=== PATIENT | male | born 1980 | race Caucasian/White ===

== ENCOUNTER → 2016-07-05 | Outpatient (CLI) | payer OTHER | LOC: CIMAGING 08:23 | PROVIDERS: ATTEND Nurse Practitioner | DX: N20.0 Calculus of kidney (principal) | CPT/HCPCS: 74176-PO ==

== ENCOUNTER 2017-08-23 09:48 | Inpatient (IN) | payer OTHER ==
[2017-08-23] MEDS ORDERED: NS 1,000 ML IV ONE ×2 (09:54→10:34)
--- NOTE | 2017-08-23 10:13 | EDPHY ---
H & P Time Seen by Provider: 08/23/17 09:55 HPI/ROS: HPI Muscle pain. 37-year-old male by private vehicle. This patient reports that he was working out at a cross fit gym on Sunday. He reports that he usually does get sore a day or so after his workout. However he got sore Sunday night and the soreness has continued through today. He describes having soreness in his biceps and his chest and thighs. He is concerned that he may be in rhabdomyolysis. He denies any trauma. No fever. No other complaints. ROS: Constitutional: No fever, no chills. As above. Respiratory: No cough. No shortness of breath. Cardiac: No chest pain, no palpitations. Gastrointestinal: No abdominal pain, no vomiting, no diarrhea. Genitourinary: No hematuria. No dysuria or increased frequency with urination. No dark urine. Musculoskeletal: No back pain. No neck pain. As above. Skin: No rashes. Neurological: No headache. No focal weakness or altered sensation. Past medical history: Exercise-induced asthma and ADD. He takes Wellbutrin and Vyvanse for this. He also takes testosterone. Social history: Nonsmoker. Denies alcohol. Here by himself. Physical Exam: General Appearance: Alert, no distress. He appears comfortable. Muscular middle-aged male. This patient is responding to questions appropriately and in full sentences. This patient appears well-hydrated and well-nourished. Eyes: Pupils equal and round no pallor or injection. No lid edema, erythema or injection. Respiratory: There are no retractions, lungs are clear to auscultation with good air movement bilaterally. Cardiovascular: Regular rate and rhythm. No murmur. Gastrointestinal: Abdomen is soft and nontender, no masses, bowel sounds normal. No focal tenderness at McBurney's point. No Pepper sign. Neurological: Motor sensory function is grossly intact. Cranial nerves are normal. Gait is normal. Skin: Warm and dry, no rashes. Musculoskeletal: Neck is supple and nontender. Extremities are symmetrical. All joints range without pain or impingement. Psychiatric: No agitation. No depression. Database: EKG: Imaging: Procedures: Emergency department course: Vital signs reviewed. IV was placed. He was started on IV normal saline with 1 -2 L to be given over the next hour. Renal function and CK will be checked. 11:50 a.m., patient CK is 24,000. He is currently on his 2nd L of IV fluid. He appears comfortable. Hospitalist paged. 12:05 p.m., spoke with hospitalist. Patient accepted for admission to the hospitalist service by Dr. Newton. He will go by private vehicle. I have filled out the appropriate transfer paperwork. He was transferred in stable condition. He has had 2 L of IV normal saline in the emergency department. Differential Diagnosis: The differential diagnosis on this patient includes but is not limited to muscle fatigue, post exercise muscle soreness. Rhabdomyolysis, viral syndrome unlikely. This represents a partial list of diagnoses considered. These considerations are based on history, physical exam, past history, reassessment and diagnostic testing. Smoking Status: Never smoked Constitutional: Initial Vital Signs Temperature (C) 36.8 C 08/23/17 10:00 Heart Rate 80 08/23/17 10:00 Respiratory Rate 16 08/23/17 10:00 Blood Pressure 149/94 H 08/23/17 10:00 O2 Sat (%) 98 08/23/17 10:00 O2 Delivery Mode Room Air Allergies/Adverse Reactions: No Known Allergies Allergy (Verified 08/23/17 10:11) Home Medications: Medication Instructions Recorded Amino Acids 11/20/14 Creatine Monohydrate 11/20/14 Fish Oil 11/20/14 Multiple Vitamin 11/20/14 Albuterol Hfa Anes Only 08/23/17 Bupropion HCl 08/23/17 Testosterone 08/23/17 Vyvanse 08/23/17 Medical Decision Making - Data Points Laboratory Results: Laboratory Results 08/23/17 10:20 08/23/17 08/23/17 10:20 10:05 Sodium 137 mEq/L mEq/L (135-145) Potassium 4.4 mEq/L mEq/L (3.3-5.0) Chloride 102 mEq/L mEq/L (97-110) Carbon Dioxide 26 mEq/l mEq/l (22-31) Anion Gap 9 mEq/L mEq/L (8-16) BUN 15 mg/dL mg/dL (7-23) Creatinine 1.2 mg/dL mg/dL (0.7-1.3) Estimated GFR > 60 Glucose 93 mg/dL mg/dL (70-100) Calcium 9.3 mg/dL mg/dL (8.5-10.4) Creatine Kinase 82906 IU/L H IU/L (0-224) CK-MB (CK-2) Fraction Pending CK-MB (CK-2) % Pending Creatine Kinase Interp Pending Urine Color YELLOW Urine Appearance CLEAR Urine pH 6.5 (5.0-7.5) Ur Specific Diller <= 1.005 (1.002-1.030) Urine Protein NEGATIVE (NEGATIVE) Urine Ketones NEGATIVE (NEGATIVE) Urine Blood 3+ H (NEGATIVE) Urine Nitrate NEGATIVE (NEGATIVE) Urine Bilirubin NEGATIVE (NEGATIVE) Urine Urobilinogen 0.2 EU EU (0.2-1.0) Ur Leukocyte Esterase NEGATIVE (NEGATIVE) Urine RBC 0-1 /hpf /hpf (0-3) Urine WBC 0-1 /hpf /hpf (0-3) Ur Epithelial Cells NONE SEEN /lpf /lpf (NONE-1+) Urine Glucose NEGATIVE (NEGATIVE) Medications Given: Discontinued Medications Sodium Chloride (Ns) 1,000 mls @ 0 mls/hr IV EDNOW ONE; Wide Open PRN Reason: Protocol Stop: 08/23/17 09:55 Last Admin: 08/23/17 10:26 Dose: 1,000 mls Sodium Chloride (Ns) 1,000 mls @ 0 mls/hr IV EDNOW ONE; Wide Open PRN Reason: Protocol Stop: 08/23/17 10:35 Last Admin: 08/23/17 11:30 Dose: 1,000 mls Departure - Departure Disposition: [facility] Inpatient Acute Clinical Impression: Rhabdomyolysis
[2017-08-23 11:41] LABS: CREATINE KINASE 24000 IU/L (0-224)
[2017-08-23] MEDS ORDERED: PROMETHAZINE HCL 25 MG/ML INJ IVP PRN (14:40)
[2017-08-23] MEDS ORDERED: ACETAMINOPHEN 325 MG TAB PO PRN (14:40)
[2017-08-23] MEDS ORDERED: CYCLOBENZAPRINE 10 MG TAB PO PRN (14:58)
--- NOTE | 2017-08-23 15:57 | GHP ---
[f rep st] HISTORY AND PHYSICAL DATE OF ADMISSION: 08/23/2017 CHIEF COMPLAINT: Bilateral arm pain. HISTORY OF PRESENT ILLNESS: The patient is a pleasant 37-year-old gentleman with a past medical hist ory of exercise-induced asthma and attention deficit disorder, currently treated with Wellbutrin and Vyvanse who presented to the [facility] with complaint of persistent bilateral up per arm pain. The patient states he is relatively active and works out frequently, but on the prior Sunday to admission to the hospital, he had a more intense workup than average. He states he usually gets muscle pain about 48 hours after an intense workout, but he states this pain started the day of the work out and persisted throughout the subsequent several days. He noted swelling of his arms as well and there was associated limited mobility in flexion of his elbows. As such, he presented to [facility] and evaluation there was notable for a creatine kinase of 24,000. The patient states that the emily n is reasonable as long as he keeps his elbows in a somewhat flexed position. He has not noted any c old extremities. He does not have any significant symptoms in his lower extremities, other than mild associated soreness. Apparently some of the CrossFit exercise that he was doing involved a lot of p ull-ups. PAST MEDICAL HISTORY: 1. Asthma, exercise induced. 2. Attention deficit disorder. PAST SURGICAL HISTORY: 1. Hernia repair. 2. Tonsillectomy. MEDICATIONS: 1. Wellbutrin XL 150 mg daily. 2. Vyvanse 40 mg daily. 3. Albuterol inhaler as needed. 4. Testosterone 240 mg IM every 7 days. ALLERGIES: No known drug allergies. FAMILY HISTORY: Mother and father are both living. There are several cardiac issues on his mother s shankar, including early coronary artery disease, aortic dissection. His brother has a history of hypert rophic cardiomyopathy and is status post valve replacement, secondary to endocarditis. Father report edly healthy. SOCIAL HISTORY: Patient is a nonsmoker. He does drink alcohol socially. He is currently . He has 1 biological son of his own. REVIEW OF SYSTEMS: CONSTITUTIONAL: No reports of any fevers or chills. ENT: No recent upper respi ratory illnesses. CARDIOVASCULAR: No complaints of any chest pains, palpitations, or syncopal episo lily. RESPIRATORY: No complaints of shortness of breath or productive cough. GI: No nausea, vomiti ng, diarrhea, or constipation. No focal abdominal pain. : No report of any difficulty with urina tion, but he did notice urine appeared slightly darker in the prior 24-48 hours. NEUROLOGIC: No com plaints of any headaches or paralysis, but he does have some weakness of his upper extremities relate d to the rhabdomyolysis. HEMATOLOGIC: No history of any deep vein thrombosis or pulmonary embolism. PSYCHIATRIC: No history of anxiety or depression. ENDOCRINE: No polyuria or heat or cold intolera nce. SKIN: No new skin rashes. MUSCULOSKELETAL: No joint swelling or redness. PHYSICAL EXAMINATION: VITAL SIGNS: Temperature 37.1, blood pressure 166/99, heart rate 80, respirat ions 18, saturating 97% on room air. GENERAL: Patient appears comfortable. He is awake, alert, con versant, in no acute distress, able to provide a good history. HEENT: Extraocular movements appear intact. No scleral icterus is noted. Mucous membranes moist. NECK: Supple. No thyroid enlargemen t noted. CHEST: Clear on auscultation with normal respiratory effort. HEART: Regular rate and rhy thm. No murmurs appreciated. ABDOMEN: Soft, nontender, nondistended. : No Taylor catheter in pl jose guadalupe. EXTREMITIES: Tenderness with palpation of the biceps muscles. The upper arms do appear to be mildly swollen and taut. He has good pulses radially in the upper extremities bilaterally. NEUROLOG IC: Cranial nerves 2-12 appear grossly intact. Strength 5/5 in the lower extremity and 4/5 with elb ow flexion. LABORATORY DATA: Sodium 137, potassium 4.4, chloride 102, bicarb 26, BUN 15, creatinine 1.2, glucose 93. CPK to 24,000. Urinalysis shows 3+ blood. ASSESSMENT/PLAN: 1. Rhabdomyolysis, presumably secondary to increased intensity of exercise that he did approximately 4 days prior to coming into the hospital. Currently, his electrolytes are within normal limits as i s his creatinine. CPK though rather elevated at 24,000. Recommend starting intravenous fluids with normal saline at 150 cc/h. Will repeat electrolytes and CPK value in the morning as well. Monitor f or any signs or symptoms suggestive of compartment syndrome, but currently has good pulses and the pa in, which appears reasonable. 2. Elevated blood pressure. No known history of hypertension, but has had persistently elevated shea dings here in the hospital in the 150s to 160s. Follow closely overnight. 3. Deep venous thrombosis prophylaxis, low risk. Patient is ambulatory. We will hold Lulu and araceli hunt at this time. DISPOSITION: I will admit him under observation status overnight and reassess tomorrow depending on how his electrolytes appear. /[id number]/MODL
[2017-08-23] MEDS: HYDROCODONE/APAP 5/325 TAB PO PRN (20:28)
[2017-08-23] MEDS: NS 1,000 ML IV SCH (20:28)
[2017-08-24] MEDS: NS 1,000 ML IV SCH ×4 (03:06→19:01)
[2017-08-24 05:18] LABS: PLATELET COUNT 149 10^3/uL (150-400)
[2017-08-24 05:48] LABS: CREATINE KINASE > 30000 IU/L (0-224)
[2017-08-24] MEDS: oxyCODONE IR 5 MG TAB PO PRN ×2 (08:07→14:40)
--- NOTE | 2017-08-24 08:20 | HOSPPROG ---
Hospitalist Progress Note Assessment/Plan: Rhabdomyolysis - cross fit injury. CK trending up. Will increase NS to 200/hr and continue to follow CK daily. Check Mag and phos. Consideration was given to compartment syndrome thus surgical eval is requested. Dr. Goel to see pt. Elevated blood pressure - labile BP's. PRN Hyrdalazine. Consider initiation of anti-hypertensive, but for now focus on pain control. Elevated LFT's - AST>ALT. Note recent heavy etoh intake, could be mild etoh induced hepatitis. Rhabdo may be contributory. Will send hepatitis panel and check RUQ u/s. Trend LFT's. Elevated testosterone level - on supplement. S/P phlebotomy 2 days ago at direction of his testosterone prescriber. Discussed stroke risk with elevated blood pressure. Recommend he hold the testosterone supplement. Asthma - stable, no e/o exacerbation ADD - holding vyvanse with elevated BP Full code Dispo - change to inpt for ongoing management of rhabdomyolysis Subjective: Pt doing ok, still pain and decreased ROM of b/l UE's. Had some paresthesias yesterday, but denies paresthesias now. Notes increased swelling of b/l UE's. No fevers. No N/V. Objective: Vital Signs Temp Pulse Resp BP Pulse Ox 36.8 C 64 14 151/97 H 98 08/24/17 07:20 08/24/17 07:20 08/24/17 07:20 08/24/17 07:20 08/24/17 07:20 Laboratory Results 08/24/17 04:49 08/24/17 04:49 08/23/17 08/24/17 08/25/17 05:59 05:59 05:59 Intake Total 4388 Balance 4388 - Physical Exam Constitutional: no apparent distress Eyes: PERRL Ears, Nose, Mouth, Throat: moist mucous membranes Cardiovascular: regular rate and rhythym Respiratory: no respiratory distress Gastrointestinal: normoactive bowel sounds, soft, non-tender abdomen Skin: warm Musculoskeletal: other (b/l UE swelling surrouding biceps/triceps region, mildly tense, 2+ radial pulses b/l, sensation intact) Neurologic: AAOx3 Psychiatric: interacting appropriately ICD10 Worksheet Patient Problems: Problems Problem Status Onset Rhabdomyolysis Acute
[2017-08-24] MEDS ORDERED: buPROPion XL 150 MG TAB PO SCH (09:00)
--- NOTE | 2017-08-24 09:47 | PDMN ---
Medical Necessity Medical necessity: Patient meets inpatient criteria per physician note and [facility] Musculoskeletal Disease GRG (rhabdomyolysis and rising creatine kinase despite IV hydration; elevated LFT; elevated testosterone, likely d/t supplements, B/P to 192/119; anticipated LOS > 2 midnights for increase IV hydration/NS @ 200ml/ hr, monitoring of elevated B/P/poss initiation of antihypertensive meds.)
--- NOTE | 2017-08-24 13:19 | PDCONSULT ---
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 Surgical consultation was requested to rule out compartment syndrome. He works out in a Cross-Fit gym 4-7 x week and uses 240mg Testosterone IM weekly. His last work out was last . Then he and his went to the [employer] for a long weekend with friends. He consumed more than his usual amount of EtOH and felt "lousy" on Sunday and went to the gym and did an intense work out. He began experiencing arm swelling the following day and came to the ED yesterday and was admitted to the Hospitalist service. He reports bilateral upper extremity pain, but no paresthesias, weakness or tingling in the hands or fingers. PMH: medications: Testosterone 240 mg IM qweek, Wellbutrin, Vyvanse, Albuterol inhaler non-smoker, Hx Asthma intermitant EtOH PE: T 36.8 P-80 R 16 BP 149/94 WDWN male in NAD HEENT: no JVD, no adenopathy, sclerae anicteric chest: without deformity/no prior clavicular injury, lungs clear without wheezing Abd: soft/no HSM ext: bilateral upper extremity swelling involving the forearms and distal upper arms. radial pulses +4/+4, ulnar +2/+2 no venous congestion, good cap refill distal NV intact wbc 6.3 H/H 16.9/48.6 plat 149 AST 735 ALT 319 CK >29140 Imp: rhabdomyolyisis likely secondary to intense weight lifting session in a setting of volume depletion clinically mild arm swelling-no findings to suggest a surgical compartment syndrome. given the time frame, I would think this would be unlikely to occur moving forward. The first symptoms of a clinically significant compartment would be loss of neuro function, sensory first then motor If he develops any neuro-defecit will proceed with compartment pressures. I also ordered an bilateral upper extremity ultrasound to rule out the remote possibility of bilateral Pagett-Schroetter syndrome (axillo-subclavian thrombosis) Manoj Goel MD, FACS
[2017-08-24 14:40] LABS: HEPATITIS B SURFACE ANTIGEN NEGATIVE (NEGATIVE)
--- NOTE | 2017-08-24 14:43 | ASMTCASEMG ---
Living Arrangements What is your living Answers: With Spouse arrangement? Who do you live with? Type Of Residence What kind of residence do Answers: House you live in? Discharge Plan Comments Coordination Status Comments Notes: Pt is a 37 y/o man admitted for rhabdomyolysis. Pt will most likely d/c without any needs when medically stable. No therapies ordered at this time. CM available for changes. Plan: Independent Date Signed: 08/24/2017 02:42 PM Electronically Signed By:JARRELL Dawkins
[2017-08-24 14:46] LABS: HEPATITIS A ANTIBODY IGM (BCH) NEGATIVE (NEGATIVE); HEPATITIS B CORE AB IGM NEGATIVE (NEGATIVE)
[2017-08-24 14:57] LABS: HEPATITIS C ANTIBODY TOTAL NEGATIVE (NEGATIVE)
[2017-08-24] MEDS: buPROPion XL 150 MG TAB PO SCH (15:15)
[2017-08-24] MEDS: HYDROCODONE/APAP 5/325 TAB PO PRN ×2 (16:43→22:06)
[2017-08-25 06:00] LABS: CREATINE KINASE > 30000 IU/L (0-224)
[2017-08-25] MEDS: buPROPion XL 150 MG TAB PO SCH (08:59)
--- NOTE | 2017-08-25 09:28 | TRAUMAPN ---
Trauma Progress Note Assessment/Plan: Miles Villalobos is a 37-year-old gentleman known to me for prior hernia repair he presented to the hospital after CrossFit training with bilateral upper extremity pain. Rhabdomyolysis was also diagnosed and he was hydrated appropriately and monitored here in the hospital due to his abdominal pain General surgery was called for possible compartment syndrome bilateral upper extremities. The patient complains of triceps pain distally close to the elbow with swelling. He has had bilateral upper extremity duplex evaluation done to rule out compression from 1st rib these were normal by report and my personal evaluation. He is alert oriented no distress Lungs clear bilaterally Heart regular rate and rhythm Abdomen soft nontender nondistended Bilateral upper extremities with minimal tenderness on palpation. No pain on passive range of motion. Intact sensation distally neurovascularly intact Ultrasound of abdomen from this morning reviewed for possible liver or gallbladder disease due to elevated LFTs. Most likely shock liver. Ultrasound for confirmation did not show any pathology with antegrade flow of blood through his liver. Overall I believe he has rhabdomyolysis due to work out and possibly testosterone use. Will follow peripherally at this point. Objective: Vital Signs Temp Pulse Resp BP Pulse Ox 36.6 C 61 18 154/96 H 97 08/25/17 07:17 08/25/17 07:17 08/25/17 07:17 08/25/17 07:17 08/25/17 07:17 Laboratory Results 08/25/17 05:02 08/24/17 08/25/17 08/26/17 05:59 05:59 05:59 Intake Total 3000 Balance 3000
[2017-08-25] MEDS: NS 1,000 ML IV SCH ×2 (12:31→20:54)
[2017-08-25] MEDS: hydrALAZINE 20 MG/ML VIAL IVP PRN ×2 (12:31→19:03)
[2017-08-25] MEDS: oxyCODONE IR 5 MG TAB PO PRN (13:43)
--- NOTE | 2017-08-25 13:48 | HOSPPROG ---
Hospitalist Progress Note Assessment/Plan: Rhabdomyolysis - cross fit injury. No e/o compartment syndrome per surgery, appreciate their evaluation. CK remains elevated >30K. Note, he was off IVF's all night despite order for 200 cc's/hr. -Reminded RN to cont IVF's as this is his treatment for rhabdo, resume NS at 200 cc's/hr -trend CK Elevated blood pressure - labile BP's. PRN Hydralazine, low Na diet. Elevated LFT's - AST>ALT. Pt denies binge drinking or regular etoh use. Rhabdo may be contributory. Hepatitis panel neg. RUQ u/s showed fatty liver. Note pt was on ketogenic / high fat diet for several months. -Advised against ketogenic diet -trend LFT's -outpt f/u with PCP and recommend he have his lipids checked, defer for now as wouldn't start statin with elevated LFT's Elevated testosterone level - on supplement. S/P phlebotomy 2 days ago at direction of his testosterone prescriber. Discussed stroke risk with elevated blood pressure. Recommend he stop the testosterone supplement as likely causing more harm than benefit. Asthma - stable, no e/o exacerbation ADD - holding vyvanse with elevated BP Full code Dispo - cont inpt Subjective: Pt doing ok. Still quite sore in b/l upper arms. Poor ROM of right arm, though a little better than yesterday. Denies paresthesias. No abdominal pain, N/V or fevers. Excellent uop. Good oral intake. Objective: Vital Signs Temp Pulse Resp BP Pulse Ox 36.6 C 72 16 159/75 H 96 08/25/17 07:17 08/25/17 11:25 08/25/17 11:25 08/25/17 12:31 08/25/17 11:25 Laboratory Results 08/25/17 05:02 08/24/17 08/25/17 08/26/17 05:59 05:59 05:59 Intake Total 3000 Balance 3000 - Physical Exam Constitutional: no apparent distress Eyes: PERRL Ears, Nose, Mouth, Throat: moist mucous membranes Cardiovascular: regular rate and rhythym Respiratory: no respiratory distress, clear to auscultation Gastrointestinal: normoactive bowel sounds, soft, non-tender abdomen Skin: warm Musculoskeletal: other (b/l proximal UE tenderness and edema, 2+ radial pulses b /l, sensation intact) Neurologic: AAOx3 Psychiatric: interacting appropriately ICD10 Worksheet Patient Problems: Problems Problem Status Onset Rhabdomyolysis Acute
[2017-08-25] MEDS: HYDROCODONE/APAP 5/325 TAB PO PRN (21:03)
[2017-08-26] MEDS: NS 1,000 ML IV SCH (01:48)
[2017-08-26 05:55] LABS: CREATINE KINASE 20571 IU/L (0-224)
[2017-08-26 07:18] VITALS: BP 132/76
[2017-08-26] MEDS: buPROPion XL 150 MG TAB PO SCH (09:48)
--- NOTE | 2017-08-26 17:52 | GDS ---
[f rep st] DISCHARGE SUMMARY DISCHARGE DIAGNOSES: 1. Rhabdomyolysis secondary to Cross-Fit overuse injury, improved. 2. Elevated liver enzymes, trending down. 3. Elevated testosterone level secondary to exogenous supplementation, which I have recommended he d iscontinue. 4. Asthma, stable. 5. Attention deficit disorder. Vyvanse is held. 6. Elevated blood pressure, improved. CONSULTANTS: Dr. Adonis Goel, General surgery. HISTORY OF DETAILS: Please see the history and physical dated August 23, 2017. In brief, Mr. Villalobos is a 37-year-old male with a history of asthma and ADD, who presented to the emergency department with bilateral upper arm pain. He does frequent CrossFit workouts and the day prior to admission, [place] had more alcohol than usual, became dehydrated, and proc eeded to do his intense CrossFit exercises. He then developed severe muscle pain with decreased rang e of motion. His CK level was elevated at 24,000 in the emergency department. [facility]. HOSPITAL COURSE: Patient admitted to med/surg unit. He received aggressive IV fluid hydration. His CK remained elevated for several days, but on hospital day 3, it finally trended down to below the l evel of admission. Due to significant swelling and pain, a surgery consult was obtained to ensure [facility] was no concern for compartment syndrome. This was thought to be unlikely and he did not warrant any further surgical intervention. Testosterone level was nearly 2000. In addition, he was noted to be hypertensive. He gives a history of recent phlebotomy and states he has been told to have his bl ood drawn on a regular basis to prevent thrombocytosis secondary to exogenous testosterone use. I di scussed with him the dangers of this practice and that it may increase his stroke risk with iatrogeni c thrombocytosis in the setting of elevated blood pressures and very high testosterone levels. I str ongly urged him to discontinue exogenous testosterone use. In addition, it was found his LFTs were e levated with an AST of 735 and an ALT of 319. These trended down to 537 and 308 respectively. A rig ht upper quadrant ultrasound showed fatty infiltration of liver. Hepatitis panel was negative. He d enies frequent or heavy alcohol use which was explored given the AST/ALT ratio greater than 2 to 1. It was revealed in his history that he has been on a ketogenic diet which is very high fat and no sug ar. I discussed this may have caused some liver damage and I recommend he stop the ketogenic diet, w hich he already has. He should have close outpatient followup with primary care physician to recheck his liver enzymes and would recommend further workup with ferritin and ongoing investigation if his liver enzymes persist elevated. He did have intermittently elevated blood pressures, which he attrib utes to white coat syndrome. He received a few p.r.n. doses of hydralazine. However, his blood pres sure nonmedicated on the day of discharge is 132/76, and again he should have close followup with his primary care to have his blood pressure recheck. DISPOSITION: Patient is discharged home in stable condition. FOLLOWUP: Dr. Ana Laura Orellana, Primary Care. He should have repeat liver enzymes and a CK recheck wi thin 1 week. DISCHARGE MEDICATIONS: Please see ServiceRelated completed outpatient medication list. There are no new m edications on discharge. He will continue all outpatient medications previously prescribed, with the exception of testosterone, which I discontinued as I recommended he stop exogenous testosterone use. /[id number]/MODL
== END 2017-08-26 11:25 | disposition home or self-care (01) | DRG 566 ==
LOC: CED 09:48 → CEDHOLD 12:04 → F3E 14:00 → OBSVTOIN 08-24 08:20
PROVIDERS: ADMIT Internal Medicine; ATTEND Internal Medicine
DX: T79.6XXA Traumatic ischemia of muscle, initial encounter (principal); R74.8 Abnormal levels of other serum enzymes; E29.0 Testicular hyperfunction; J45.909 Unspecified asthma, uncomplicated; F98.8 Other specified behavioral and emotional disorders with onset usually occurring in childhood and adolescence; R03.0 Elevated blood-pressure reading, without diagnosis of hypertension; E86.0 Dehydration; X50.0XXA Overexertion from strenuous movement or load, initial encounter
CPT/HCPCS: 80048-PO; 81003-PO; 81015-PO; 82550-PO; 82553-PO; G0378; G0472; J0360